=== PATIENT | female | born 1990 | race Two or more races ===

== ENCOUNTER 2021-05-18 11:36 | Emergency (ER) | payer OTHER ==
[~2021-05-18] VITALS: Ht 157.5 cm; Wt 65.0 kg
[2021-05-18] MEDS ORDERED: HYDROCODONE/ACETAMINOPHEN 5/325MG TABLET PO STA (12:29)
[2021-05-18 13:07] LABS: HCG SCREEN NEGATIVE
[2021-05-18] MEDS ORDERED: BACITRACIN ZINC OINT UDPKT TOP ONE (14:45)
[2021-05-18] MEDS ORDERED: NAPR-681 PO (14:56)
[2021-05-18] MEDS ORDERED: HYDR-4001 PO (14:56)
[2021-05-18] MEDS ORDERED: BACITRACIN ZINC OINT UDPKT TOP NR (17:15)
[2021-05-18] MEDS ORDERED: HYDROCODONE/ACETAMINOPHEN 5/325MG TABLET PO NR (17:15)
[2021-05-18 18:12] VITALS: BP 133/81
== END 2021-05-18 18:13 | disposition home or self-care (01) ==
LOC: ER 11:36
DX: S09.8XXA Other specified injuries of head, initial encounter (principal); S16.1XXA Strain of muscle, fascia and tendon at neck level, initial encounter; M25.571 Pain in right ankle and joints of right foot; M25.512 Pain in left shoulder; V43.52XA Car driver injured in collision with other type car in traffic accident, initial encounter; Y93.89 Activity, other specified; Y92.410 Unspecified street and highway as the place of occurrence of the external cause
CPT/HCPCS: 71045; 73030; 73590; 73630; 81025; 84703; 99284